=== PATIENT | male | born 1980 | race American Indian/Alaskan Native ===

== ENCOUNTER 2020-06-20 00:12 | Emergency (ER) | payer SELFPAY ==
[2020-06-20 01:56] VITALS: BP 161/104
[2020-06-20 02:30] LABS: Bilirubin,Urine NEG (Negative); Blood,Urine LG (Negative); Color,Urine Red (Yellow)
[2020-06-20 02:31] LABS: RBC,Urine > 182.0 /HPF (0.0-6.0); WBC,Urine > 182.0 /HPF (0.0-6.0)
[2020-06-20 02:48] LABS: BUN/Creatinine Ratio 10; Basophils % (Auto) 0.5 % (0.0-1.8); Blood Urea Nitrogen 10 mg/dL (9-20); Calcium 10.1 mg/dL (8.4-10.2); Eosinophils # (Auto) 0.1 K/mm3 (0.0-0.4); Eosinophils % (Auto) 1.1 % (0.0-4.3); Hematocrit 43.5 % (35.5-45.6); Hemoglobin 15.4 gm/dl (11.8-15.2); Hemolysis Index 6; Lymphocytes % (Auto) 35.8 % (13.4-35.0); Mean Corpuscular HGB Conc 35 % (32-34); Mean Corpuscular Volume 91 fl (84-94); Monocytes # (Auto) 0.4 K/mm3 (0.0-0.8); Monocytes % (Auto) 4.8 % (0.0-7.3); Platelet Count 202 K/mm3 (140-440); Red Blood Count 4.76 M/mm3 (3.65-5.03); Red Cell Distribution Width 13.5 % (13.2-15.2)
[2020-06-20 02:57] LABS: INR 0.91 (0.87-1.13)
[2020-06-20 02:58] LABS: Partial Thromboplastin Time 28.7 Sec. (24.2-36.6)
--- NOTE | 2020-06-20 03:15 | Emergency Department Report ---
ED Male HPI - General Chief complaint: Urogenital-Male Stated complaint: BLOOD IN URINE Time Seen by Provider: 06/20/20 03:13 Source: patient Mode of arrival: Ambulatory Limitations: No Limitations - History of Present Illness Radiation: none Severity: mild Quality: dull Consistency: constant Improves with: none Worsens with: none blood in urine. denies: swelling, mass, urinary retention, nausea/vomiting, incontinence - Related Data Sexually active: No Previous Rx's Medication Instructions Recorded Last Taken Type Metaxalone [Skelaxin] 800 mg PO TID #20 tablet 05/27/14 Unknown Rx Promethazine [Phenergan] 25 mg PO Q6H PRN #20 tablet 05/27/14 Unknown Rx traMADoL [Ultram] 50 mg PO Q6HR PRN #20 tablet 05/27/14 Unknown Rx Acetaminophen/Codeine [Tylenol #3] 1 tab PO Q6H PRN #15 tab 06/20/20 Unknown Rx Ciprofloxacin HCl [Ciprofloxacin 500 mg PO Q12HR #28 tab 06/20/20 Unknown Rx TAB] Phenazopyridine [Pyridium] 200 mg PO BID PRN #10 tab 06/20/20 Unknown Rx Allergies Allergy/AdvReac Type Severity Reaction Status Date / Time No Known Allergies Allergy Unverified 10/29/13 08:21 ED Review of Systems ROS: Stated complaint: BLOOD IN URINE Other details as noted in HPI Comment: All other systems reviewed and negative ED Past Medical Hx - Past Medical History Previous Medical History?: Yes Additional medical history: Chronic back pain and chronic constipation/diarrhea. - Surgical History Past Surgical History?: No - Social History Smoking Status: Never Smoker - Medications Home Medications: Home Medications Medication Instructions Recorded Confirmed Last Taken Type Metaxalone [Skelaxin] 800 mg PO TID #20 tablet 05/27/14 Unknown Rx Promethazine [Phenergan] 25 mg PO Q6H PRN #20 tablet 05/27/14 Unknown Rx traMADoL [Ultram] 50 mg PO Q6HR PRN #20 tablet 05/27/14 Unknown Rx Acetaminophen/Codeine [Tylenol #3] 1 tab PO Q6H PRN #15 tab 06/20/20 Unknown Rx Ciprofloxacin HCl [Ciprofloxacin 500 mg PO Q12HR #28 tab 06/20/20 Unknown Rx TAB] Phenazopyridine [Pyridium] 200 mg PO BID PRN #10 tab 06/20/20 Unknown Rx ED Physical Exam - General Limitations: No Limitations General appearance: alert, in no apparent distress - Head Head exam: Present: atraumatic, normocephalic - Eye Eye exam: Present: normal appearance - ENT ENT exam: Present: mucous membranes moist - Neck Neck exam: Present: normal inspection - Respiratory Respiratory exam: Present: normal lung sounds bilaterally. Absent: respiratory distress - Cardiovascular Cardiovascular Exam: Present: regular rate, normal rhythm. Absent: systolic murmur, diastolic murmur, rubs, gallop - GI/Abdominal GI/Abdominal exam: Present: soft, normal bowel sounds - Rectal Rectal exam: Present: deferred - Extremities Exam Extremities exam: Present: normal inspection - Back Exam Back exam: Present: normal inspection - Neurological Exam Neurological exam: Present: alert, oriented X3 - Psychiatric Psychiatric exam: Present: normal affect, normal mood - Skin Skin exam: Present: warm, dry, intact, normal color. Absent: rash ED Course Vital Signs 06/20/20 01:49 Temperature 98.4 F Pulse Rate 71 Respiratory 18 Rate Blood Pressure 161/104 O2 Sat by Pulse 96 Oximetry ED Medical Decision Making - Lab Data Result diagrams: 06/20/20 02:00 06/20/20 02:00 Lab Results 06/20/20 06/20/20 06/20/20 Range/Units 01:58 02:00 02:00 WBC 8.5 (4.5-11.0) K/mm3 RBC 4.76 (3.65-5.03) M/mm3 Hgb 15.4 H (11.8-15.2) gm/dl Hct 43.5 (35.5-45.6) % MCV 91 (84-94) fl MCH 32 (28-32) pg MCHC 35 H (32-34) % RDW 13.5 (13.2-15.2) % Plt Count 202 (140-440) K/mm3 Lymph % (Auto) 35.8 H (13.4-35.0) % [place] % (Auto) 4.8 (0.0-7.3) % Eos % (Auto) 1.1 (0.0-4.3) % Baso % (Auto) 0.5 (0.0-1.8) % Lymph # (Auto) 3.0 (1.2-5.4) K/mm3 [place] # (Auto) 0.4 (0.0-0.8) K/mm3 Eos # (Auto) 0.1 (0.0-0.4) K/mm3 Baso # (Auto) 0.0 (0.0-0.1) K/mm3 Seg Neutrophils % 57.8 (40.0-70.0) % Seg Neutrophils # 4.9 (1.8-7.7) K/mm3 PT 12.4 (12.2-14.9) Sec. INR 0.91 (0.87-1.13) APTT 28.7 (24.2-36.6) Sec. Sodium (137-145) mmol/L Potassium (3.6-5.0) mmol/L Chloride (98-107) mmol/L Carbon Dioxide (22-30) mmol/L Anion Gap mmol/L BUN (9-20) mg/dL Creatinine (0.8-1.3) mg/dL Estimated GFR ml/min BUN/Creatinine Ratio % Glucose (75-100) mg/dL Calcium (8.4-10.2) mg/dL Urine Color Red (Yellow) Urine Turbidity Cloudy (Clear) Urine pH 6.0 (5.0-7.0) Ur Specific [place] 1.021 (1.003-1.030) Urine Protein 100 mg/dl (Negative) mg/dL Urine Glucose (UA) Neg (Negative) mg/dL Urine Ketones Neg (Negative) mg/dL Urine Blood Lg (Negative) Urine Nitrite Neg (Negative) Urine Bilirubin Neg (Negative) Urine Urobilinogen 2.0 (<2.0) mg/dL Ur Leukocyte Esterase Neg (Negative) Urine WBC (Auto) > 182.0 H (0.0-6.0) /HPF Urine RBC (Auto) > 182.0 (0.0-6.0) /HPF Urine WBC Clumps 3+ /HPF Urine Yeast (Budding) 2+ /HPF 06/20/20 Range/Units 02:00 WBC (4.5-11.0) K/mm3 RBC (3.65-5.03) M/mm3 Hgb (11.8-15.2) gm/dl Hct (35.5-45.6) % MCV (84-94) fl MCH (28-32) pg MCHC (32-34) % RDW (13.2-15.2) % Plt Count (140-440) K/mm3 Lymph % (Auto) (13.4-35.0) % [place] % (Auto) (0.0-7.3) % Eos % (Auto) (0.0-4.3) % Baso % (Auto) (0.0-1.8) % Lymph # (Auto) (1.2-5.4) K/mm3 [place] # (Auto) (0.0-0.8) K/mm3 Eos # (Auto) (0.0-0.4) K/mm3 Baso # (Auto) (0.0-0.1) K/mm3 Seg Neutrophils % (40.0-70.0) % Seg Neutrophils # (1.8-7.7) K/mm3 PT (12.2-14.9) Sec. INR (0.87-1.13) APTT (24.2-36.6) Sec. Sodium 141 (137-145) mmol/L Potassium 4.1 (3.6-5.0) mmol/L Chloride 100.7 (98-107) mmol/L Carbon Dioxide 27 (22-30) mmol/L Anion Gap 17 mmol/L BUN 10 (9-20) mg/dL Creatinine 1.0 (0.8-1.3) mg/dL Estimated GFR > 60 ml/min BUN/Creatinine Ratio 10 % Glucose 93 (75-100) mg/dL Calcium 10.1 (8.4-10.2) mg/dL Urine Color (Yellow) Urine Turbidity (Clear) Urine pH (5.0-7.0) Ur Specific [place] (1.003-1.030) Urine Protein (Negative) mg/dL Urine Glucose (UA) (Negative) mg/dL Urine Ketones (Negative) mg/dL Urine Blood (Negative) Urine Nitrite (Negative) Urine Bilirubin (Negative) Urine Urobilinogen (<2.0) mg/dL Ur Leukocyte Esterase (Negative) Urine WBC (Auto) (0.0-6.0) /HPF Urine RBC (Auto) (0.0-6.0) /HPF Urine WBC Clumps /HPF Urine Yeast (Budding) /HPF Critical care attestation.: If time is entered above; I have spent that time in minutes in the direct care of this critically ill patient, excluding procedure time. ED Disposition Clinical Impression: UTI (urinary tract infection), Hematuria Disposition: TO HOME OR SELFCARE Is pt being admited?: No Does the pt Need Aspirin: No Condition: Stable Instructions: Acute Hematuria (ED), Dysuria (ED), Urinary Tract Infection in Men (ED) Referrals: PRIMARY CARE, [Primary Care Provider] - 3-5 Days [facility] [Provider Group] - 3-5 Days
[2020-06-20] MEDS ORDERED: SODIUM CHLORIDE 0.9% 1000 ML 1,000 ML IV ONE (03:46)
[2020-06-20] MEDS ORDERED: cefTRIAXone/NS 1 GM/50 ML 1 GM/50 ML BAG IV STA (03:48)
[2020-06-20] MEDS ORDERED: MORPHINE 4 MG/1 ML INJ ONE (06:34)
[2020-06-20] MEDS ORDERED: MORPHINE 4 MG/1 ML INJ IV ONE (06:34)
[2020-06-20] MEDS ORDERED: KETOROLAC 30 MG/1 ML INJ IV ONE (06:34)
[2020-06-20] MEDS ORDERED: KETOROLAC 30 MG/1 ML INJ ONE (06:34)
[2020-06-20] MEDS ORDERED: ONDANSETRON 4 MG/2 ML INJ ONE (06:38)
[2020-06-20] MEDS ORDERED: ONDANSETRON 4 MG/2 ML INJ IV ONE (06:42)
[2020-06-20] MEDS ORDERED: HYDROmorphone 1 MG/1 ML INJ ONE (07:22)
[2020-06-20] MEDS ORDERED: HYDROmorphone 1 MG/1 ML INJ IV ONE (07:26)
--- NOTE | 2020-06-20 09:56 | Cat Scan Report ---
CT ABDOMEN AND PELVIS WITHOUT CONTRAST INDICATION / CLINICAL INFORMATION: Right abdominal pain, hematuria. TECHNIQUE: Axial CT images were obtained through the abdomen and pelvis without IV contrast. All CT scans at [facility] location are performed using CT dose reduction for ALARA by means of automated exposure control. COMPARISON: None available. FINDINGS: LOWER CHEST: No significant abnormality. LIVER: No significant abnormality. GALLBLADDER: No significant abnormality. BILE DUCTS: No significant abnormality. PANCREAS: No significant abnormality. SPLEEN: No significant abnormality. ADRENALS: No significant abnormality. RIGHT KIDNEY / URETER: A 1.7 mm stone is seen at the level of the right hip along the distal third of the right ureter on image 141 of series 2 with secondary mild hydroureteronephrosis and associated m ild periureteral fat stranding. No other significant abnormality. LEFT KIDNEY / URETER: No significant abnormality. STOMACH / SMALL BOWEL: No significant abnormality. COLON: No significant abnormality. APPENDIX: No significant abnormality. PERITONEUM: No free fluid. No free air. No fluid collection. LYMPH NODES: No significant adenopathy. AORTA / ARTERIES: No significant abnormality. IVC / VEINS: No significant abnormality. URINARY BLADDER: Partially collapsed without a distinct abnormality. REPRODUCTIVE ORGANS: No significant abnormality. ADDITIONAL FINDINGS: None. SKELETAL SYSTEM: No significant abnormality. IMPRESSION: Mildly obstructive 1.7 mm distal right ureteral stone. Signer Name: Robert Elmore MD Signed: 06/20/2020 8:21 AM Workstation Name: [id number]
== END 2020-06-20 09:00 | disposition home or self-care (01) ==
LOC: ED 00:12
DX: N39.0 Urinary tract infection, site not specified (principal); R31.9 Hematuria, unspecified; Z79.899 Other long term (current) drug therapy
CPT/HCPCS: 36415; 74176; 80048; 81001; 85025; 85610; 85730; 96365; 96366; 96375; 99284; J0696; J1170; J1885; J2270; J2405; J7030